=== PATIENT | female | born 1960 | race Asian ===

== ENCOUNTER 2018-08-31 08:51 | Day surgery (SDC) | payer BC ==
[2018-08-31 09:19] VITALS: BMI 29.2
[2018-08-31 10:22] VITALS: TEMP 97.8
[2018-08-31 10:59] VITALS: BP 110/60; PULSE 66
== END 2018-08-31 11:05 | disposition home or self-care (01) ==
LOC: JASU-ENDO 08:51
PROVIDERS: ATTEND Internal Medicine Gastroenterology
PROC: 0DJD8ZZ Inspection of Lower Intestinal Tract, Via Natural or Artificial Opening Endoscopic (ICD-10-PCS; principal; 2018-08-31 08:45)
DX: Z12.11 Encounter for screening for malignant neoplasm of colon (principal)

== ENCOUNTER 2023-08-12 08:09 | Emergency (ER) | payer BC, OTHER ==
[2023-08-12 08:34] VITALS: BP 113/63; PULSE 63; RESP 18; TEMP 97.9; BMI 24.4
[2023-08-12] MEDS ORDERED: ACETAMINOPHEN 500 MG TABLET (FP) ONE (10:06)
[2023-08-12] MEDS ORDERED: LIDOCAINE 4% PATCH TP ONE (10:06)
[2023-08-12] MEDS: LIDOCAINE 4% PATCH TP ONE (10:14)
[2023-08-12] MEDS: ACETAMINOPHEN 500 MG TABLET (FP) PO ONE (10:14)
[2023-08-12] MEDS ORDERED: LIDOCAINE PATCH REMOVAL MC SCH (22:00)
== END 2023-08-12 12:12 | disposition home or self-care (01) ==
LOC: JERFT 08:09
DX: M54.50 Low back pain, unspecified (principal); V49.50XA Passenger injured in collision with unspecified motor vehicles in traffic accident, initial encounter; Y92.410 Unspecified street and highway as the place of occurrence of the external cause
CPT/HCPCS: 72100-TC-FY; 99283-25